=== PATIENT | male | born 1990 | race Caucasian/White ===

== ENCOUNTER 2021-04-10 19:00 | Emergency (ER) | payer BC | END 2021-04-10 19:39 | disposition home or self-care (01) | LOC: MADERS 19:00 | DX: S93.601A Unspecified sprain of right foot, initial encounter (principal); J45.909 Unspecified asthma, uncomplicated; F17.210 Nicotine dependence, cigarettes, uncomplicated; Z79.899 Other long term (current) drug therapy ==

== ENCOUNTER 2022-11-30 21:09 | Emergency (ER) | payer BC, SELFPAY ==
[2022-11-30] MEDS ORDERED: Ketorolac Tromethamine 30 MG/ML VIAL ONE (22:49)
[2022-11-30] MEDS ORDERED: Sodium Chloride 0.9% 100 ML ONE (22:59)
[2022-11-30] MEDS ORDERED: Ampicillin/Sulbactam 3 GM VIAL ONE (22:59)
[2022-11-30 23:23] LABS: Lavender RECEIVED; Red RECEIVED
== END 2022-12-01 00:08 | disposition home or self-care (01) ==
LOC: MADERS 21:09 → EEVIPCON 21:09 → MADERS 12-01 00:08
DX: K04.7 Periapical abscess without sinus (principal); F17.210 Nicotine dependence, cigarettes, uncomplicated
CPT/HCPCS: 70492; 96374; 96375; J0295; J1885; J3490